=== PATIENT | female | born 1945 | race Caucasian/White ===

== ENCOUNTER 2016-09-17 10:34 | Inpatient (IN) | payer OTHER ==
[~2016-09-17] VITALS: Ht 167.6 cm; Wt 97.5 kg
--- NOTE | ~2016-09-17 | HC ---
[facility] [address] [place] [address] CONSULTATION Name: CESAR JADE Room #: 436-P ADM IN M.R.#: [id number] Admission: 09/17/16 Attend Phys: Misael Kessler Discharge: Date of : 41 Report #: [id number] THIS REPORT FOR: //name// CC: Bay Kessler DATE OF SERVICE: 09/17/2016 REASON FOR CONSULTATION: Acute kidney injury. HISTORY OF PRESENT ILLNESS: This is a 71-year-old female who has had a rather complex month of August. On September 01, she underwent right total knee replacement at [facility]. She was in there for 12 days. That recuperation was complicated by a deep venous thrombosis on the right side. She was put on subcutaneous Lovenox and also oral warfarin. She was just discharged to home 4 days ago. She said towards the end of her hospitalization, she was having more and more difficulty with dyspnea. She recalls no diagnosis related to the dyspnea including no diagnosis of heart failure. She was not having any fever. She ____ for a couple of days and then last night became very dyspneic. She took some additional medications and sounds like some Ambien and possibly some Ativan. She was ending up being sent by ambulance to the [facility]. She was seen there very early this morning. Chest x-ray there was reported as showing early pulmonary edema. She was put on BiPAP and given some IV furosemide. Per her family request, she ended up being transferred here at [facility] where she was admitted. At [place], her creatinine level was 1.8. Upon arrival here, her creatinine level was 1.5. She was put on BiPAP throughout the day here. Just recently, she was switched over to oxygen per nasal cannula and she states she is actually starting to breathe a little bit better and is much less anxious than she had been. She has a Mcnamara catheter in place with a moderate amount of watery looking urine. We are asked to see her for the elevated creatinine. Unfortunately, I do not have any baseline creatinine levels. The patient states that she has seen Dr. Bay Cho for years as her primary care physician. She does not recall that he has ever told her about any kidney related problems. She is unaware of proteinuria, hematuria. ____ if any urinary tract infections. No history of nephrolithiasis. She was on the recent Celebrex as the discharge medication post her knee surgery. She denies other nonsteroidals at home including no ibuprofen or naproxen, although previously she took naproxen on a fairly regular basis. She states that that was preoperative, cannot find evidence of nephrotoxic exposures nor any contrast exposures. PAST MEDICAL HISTORY: Type 2 diabetes, dating back at least 20 years. Again, she is unaware of proteinuria related to that. She does not recall that she has ever been diagnosed with any diabetic nephropathy. 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 She has some hypertension, but she states that that was just diagnosed after her bradycardia was treated with a pacemaker. At that time, she was put on some losartan 25 mg daily and also some metoprolol 100 mg daily. She had the deep venous thrombosis after her right total knee replacement and has been on Lovenox at home as well as some warfarin by mouth. She states she has had problems in the past with some anxiety issues. MEDICATIONS: On admission include the losartan 25 mg daily, metoprolol 100 mg daily, furosemide 20 mg daily, potassium 10 mEq daily, Actos 45 mg daily, metformin 750 mg daily, bupropion 150 mg daily, simvastatin 40 mg daily, Prevacid 30 mg daily, potassium 10 mEq daily, Carafate 1 g t.i.d., alprazolam 0.5 mg p.r.n. q. 6 hours, warfarin 5 mg daily, Lovenox 100 mg twice daily, pantoprazole 40 mg b.i.d., iron 325 mg t.i.d., Celebrex 200 mg daily and Levemir. I would note that when I asked her specifically about taking the Celebrex, she was unaware of this medication. ALLERGIES: No known medical allergies. FAMILY HISTORY: Negative for renal disease. SOCIAL HISTORY: The patient is , lives in [place]. She is retired. REVIEW OF SYSTEMS: Has felt poorly ever since she was discharged from [facility] 4 days ago. She says she has had trouble with dyspnea, orthopnea and PND. The orthopnea has been severe and she has not been able to recline much at all. She says she is breathing better at this time than she has been at home. She has had some lower extremity edema. She denies nausea or vomiting at this time. She denies chest pain. She says she has some bruising after she started the home Lovenox and that is mainly on her abdominal wall. She reports no visual or hearing change. PHYSICAL EXAMINATION: GENERAL: Pleasant, but anxious 71-year-old female, awake and responsive at this time. She is breathing comfortably currently on oxygen per nasal cannula. VITAL SIGNS: Blood pressure 140/69, heart rate 105, temperature 99.1, oxygen saturation 100%. HEENT: Shows pupils are equal and reactive. Sclerae nonicteric. Oral mucosa is moist. NECK: Veins are not distended. No adenopathy is noted. Neck is supple. CHEST: Shows somewhat decreased breath sounds bilaterally in the bases. I hear no rales, rhonchi or wheezes. CARDIOVASCULAR: Heart has what it currently appears to be a more irregular tachycardia. [facility] [address] [place] [address] CONSULTATION Name: CESAR JADE Room #: 436-P ADM IN M.R.#: [id number] Admission: 09/17/16 Attend Phys: Misael Kessler Discharge: Date of : 41 Report #: [id number] ABDOMEN: Somewhat obese, has active bowel sounds, soft, nontender at this time. Unable to palpate organomegaly or masses. She is very obese. EXTREMITIES: She has no upper extremity edema. Both lower extremities are in compression stockings, but still has 1+ edema bilaterally of the legs and the ankles, difficult to palpate pedal pulses through the compression stockings. Mcnamara catheter has a moderate amount of watery looking urine without much color, certainly no hematuria. LABORATORY DATA: I reviewed lab from [facility] and it is remarkable for a creatinine level of 1.8 and that was at 3:15 this morning, potassium was 5.5 at that time with bicarbonate of 17. By the time she got here to [place], labs were as follows: Sodium 142, potassium 4.5, chloride 105, bicarbonate 26, BUN 29, creatinine 1.5, glucose 298, calcium 8.9, total protein 6.1, albumin 2.7, normal liver function tests. Hemoglobin 7.9, hematocrit 24.4, white count 14.0, platelets 359,000. Blood gas; pH 7.46, pCO2 of 32, pO2 of 127.9. Lactate was 1.73. I reviewed her chest x-ray, which shows bilateral pulmonary edema, although mild to moderate in extent. ASSESSMENT: 1. Acute kidney injury. Creatinine level is 1.8 earlier this morning, 1.5 this afternoon here. I do not have a baseline and she is unaware of any prior underlying chronic kidney disease. I think this is most likely due to a combination of factors including some medications with both the losartan and the Celebrex as being potential contributing agents, it sounds like both of those are fairly new medications for her. Then, she was at home, says she was not taking much in, but also had apparent hemodynamic changes over worsening heart failure/pulmonary edema. I am sure all of these things contributed. At this point, she has been undergoing some diuresis and she is breathing better, creatinine level appears to be improving. Urine studies have been ordered, but they are not yet back. We will await and see what those show as well as repeat labs in the morning. I think this may all be a transient problem from a kidney standpoint. Again, the patient knows of no underlying chronic kidney problems. She has given me verbal permission to access her labs at [facility] when I am over there tomorrow and will see what her baseline creatinine levels are. 2. Pulmonary edema. She is diuresed some and is breathing more easily. Oxygenation is better. 3. Recent deep venous thrombosis, on anticoagulation. 4. A 16 days post right total knee replacement, again complicated by some deep venous thrombosis. 5. Longstanding type 2 diabetes mellitus. Again, she is unaware of prior diabetic nephropathy. 6. Obesity. 7. Recent deep venous thrombosis, on anticoagulation. That should be continued at this time. [facility] [address] [place] [address] CONSULTATION Name: CESAR JADE Room #: 436-P ADM IN M.R.#: [id number] Admission: 09/17/16 Attend Phys: Misael Kessler Discharge: Date of : 41 Report #: [id number] I had a long conversation with the patient. We will see ____ in the morning. We will follow up on her urine studies. She appears to be diuresing, so I will keep her on the current dose of furosemide. I do not think it needs to be changed at this point. We will also try to access her labs at [facility]. <ELECTRONICALLY SIGNED> By: Christopher Waters MD 09/18/16 0634 [id number] [id number] Mauricio Guerra MD /nt
--- NOTE | ~2016-09-17 | CATHLAB ---
[facility] [address] [place] [address] [place] [address] INVASIVE PROCEDURE REPORT Name: CESAR JADE Room #: 245-P [facility] IN M.R.#: [id number] Admission: 09/17/16 Attend Phys: Misael Montes Discharge: 09/22/16 Date of : 41 Date of Service: 09/22/16 1522 Report #: [id number] THIS REPORT FOR: //name// CC: Bay Kessler DATE OF SERVICE: 09/22/2016 IMPRESSION: 1. Coronary artery disease manifested by what appeared to be a recent occlusion of the proximal left anterior descending artery. 2. Attempts at angioplasty and stenting of the LAD were unsuccessful. 3. Despite resuscitative measures, the patient on the medical laboratory technicians table. PROCEDURES: Coronary angiography, attempted angioplasty and stenting of the left anterior descending artery, placement of venous catheter in the right and left femoral vein, oral intubation and cardiopulmonary resuscitation. DESCRIPTION OF PROCEDURE: The patient was brought to the cardiac catheterization lab with evidence of a non-ST segment elevation myocardial infarction. The patient was having no significant chest pain on arrival. The patient had developed low blood pressure and was on dopamine on arrival. The patient had been given a bolus of heparin. The patient was AV sequentially paced. The right groin area was cleaned with ChloraPrep and sterilely draped in the usual fashion. The area was anesthetized with 1% lidocaine and a percutaneous needle was used in an effort to enter the right femoral artery. However, venous blood was obtained. A 6-Paraguayan sheath was placed into the right femoral vein. The needle was redirected laterally, but arterial blood could not be obtained. Despite several efforts, I could not locate the right femoral artery. Therefore, the left groin area was cleaned with ChloraPrep and sterilely draped in the usual fashion. The area was anesthetized with 1% lidocaine. It was difficult to palpate a pulse ____ patient's blood pressure of only 100 systolic and she was a large lady. The percutaneous needle was again used in an effort to enter the left femoral artery. However, venous blood was obtained. A 6-Paraguayan sheath was placed into the left femoral vein. The needle was then redirected laterally, and this time, arterial blood was obtained. I was able to place a 7 Paraguayan sheath in the left femoral artery. The initial ACT was under 200 seconds and arterial blood gas was sent for dialysis. A 6-Paraguayan diagnostic left coronary catheter was then inserted through the arterial sheath over a guidewire to the ostium of the left main artery. A single view was taken of the left coronary artery that showed the LAD to be proximally occluded. It was, therefore, decided to proceed with emergent angioplasty. The patient was given Integrilin with initial bolus of 180 mcg per kilogram and that was repeated in 10 minutes. The patient was started on intravenous Integrilin at 1 mcg per kilogram per minute because of renal insufficiency. The patient was [address] [address] INVASIVE PROCEDURE REPORT Name: YASMANYCESAR Room #: 245-P DIS IN M.R.#: [id number] Admission: 09/17/16 Attend Phys: Misael Montes Discharge: 09/22/16 Date of : 41 Date of Service: 09/22/16 1522 Report #: [id number] given an additional 2000 units of heparin intravenously when the ACT was under 200 seconds. A 6-Paraguayan Cordis XB 3.5 LAD guiding catheter was then inserted through the arterial sheath over a guidewire to the ostium of the left main artery. The ABG showed adequate oxygenation and pH. A 0.014 BMW wire was then inserted through the guiding catheter across the total occlusion and out through the distal left anterior descending artery. A 2.5 mm diameter 12 mm long angioplasty balloon was then inserted through the guiding catheter over the guidewire to within the area of occlusion. The area was then dilated by inflating the balloon up to 8 atmospheres for 20 seconds. Arteriogram showed reperfusion of the LAD with a significant stenosis. Therefore, the balloon was removed and exchanged for an 18 mm long, 2.5 mm diameter drug-eluting Medtronic stent, which was inserted through the guiding catheter over a guidewire. Because of tortuosity of the proximal LAD, I could not advance the stent to the area of stenosis. An arteriogram again showed the LAD to be occluded. Therefore, the stent balloon was removed and exchanged for the 2.5 x 12 mm long angioplasty balloon which was reinserted through the guiding catheter over guidewire to within the area of stenosis. Multiple balloon inflations were then performed in an effort to reestablish perfusion in the LAD. At this time, the patient's blood pressure continued to drop despite the dopamine. The patient became less responsive. A code blue was called and the patient was intubated by the Emergency Room physician. Again, an ABG showed adequate oxygenation and pH. At this point, it was decided to attempt stenting of the LAD and place an intraaortic balloon pump. Therefore, the angioplasty balloon was removed and because of tortuosity of the proximal LAD, I planned to place a 12 mm long, 2.5 mm bare metal stent. However at this point, the patient's blood pressure decreased despite Levophed. CPR was started. The patient then developed ventricular fibrillation. She was cardioverted on 2 occasions and given IV aminophylline. The patient was given a bolus of vasopressin 30 units intravenously. Despite these efforts, the patient remained AV paced with no blood pressure. This was despite prolonged CPR. At this point, it was decided to pronounce the patient. My impression is that the patient had suffered an acute occlusion of the proximal LAD that was not recognized immediately because she had a paced rhythm. Unfortunately, she developed cardiogenic shock and by the time I reperfused the LAD, her cardiogenic shock was irreversible and she developed significant hypotension despite vasopressors and became unresponsive and had a respiratory arrest. Unfortunately, blood pressure was never able to be stabilized and I was unable to reperfuse the LAD and was unable to place the balloon pump for hemodynamic support. IMPRESSION: 1. Coronary artery disease, the left anterior descending artery was initially completely occluded just after the takeoff from the left main artery. The circumflex artery appeared to be at least a codominant vessel with a large first marginal branch, followed by small second and third marginal branch. Distally, there was a small posterolateral branch noted. 2. Following balloon angioplasty, arteriogram of the left anterior descending [facility] [address] [place] [address] INVASIVE PROCEDURE REPORT Name: YASMANYCESAR Room #: 245-P [facility] IN M.R.#: [id number] Admission: 09/17/16 Attend Phys: Misael Montes Discharge: 09/22/16 Date of : 41 Date of Service: 09/22/16 1522 Report #: [id number] artery showed reperfusion with a 99% subtotal proximal stenosis of the left anterior descending. However, subsequent arteriogram showed the left anterior descending re-occluded with no significant flow into the left anterior descending. <ELECTRONICALLY SIGNED> By: Bay Anders MD, FAC 09/23/16 1000 1522 0057 Bay Anders MD, FAC /nt
--- NOTE | ~2016-09-17 | EKG ---
[place] [address] [facility] [place] [address] ELECTROCARDIOGRAM REPORT Name: CESAR JADE Room #: 245-P [facility] IN M.R.#: [id number] Admission: 09/17/16 Attend Phys: Misael Kessler Discharge: 09/22/16 Date of : 41 Report #: [id number] THIS REPORT FOR: //name// [facility] Test Date: 2016-09-21 Test Time: 09:36:24 Pat Name: CESAR JADE Department: Room: [facility] Gender: F Lay Out Maker: BRYANNA : 1945 Requested By: Kendal Moreira Order Number: [id number] MD: Julián Cuellar Measurements Intervals [place] Rate: 92 P: 113 MI: 220 QRS: -60 QRSD: 167 T: -21 QT: 409 QTc: 507 Interpretive Statements Ventricular-paced complexes No further analysis attempted due to paced rhythm No previous ECG available for comparison Electronically Signed On 09-23-2016 9:00:48 [employer] by Julián Cuellar [email or web address] <ELECTRONICALLY SIGNED> By: Julián Cuellar MD 09/23/16 0900 5 5 Julián Cuellar MD /TYRELL
--- NOTE | ~2016-09-17 | HC ---
[facility] [address] [place] [address] CONSULTATION Name: CESAR JADE Room #: 436- ADM IN M.R.#: [id number] Admission: 09/17/16 Attend Phys: Misael Kessler Discharge: Date of : 41 Report #: [id number] THIS REPORT FOR: //name// CC: Bay Kessler DATE OF SERVICE: 09/18/2016 PRIMARY CARE PHYSICIAN: Bay Cho MD. REQUESTING PHYSICIAN: Misael Kessler MD. REASON FOR CONSULTATION: Congestive heart failure. HISTORY OF PRESENT ILLNESS: The patient is a 71-year-old patient of mine who has a history of sick sinus syndrome and hypertension. She underwent elective knee surgery at [facility] on her right knee on the first week of August. This apparently was complicated by DVT and she was discharged on bridging therapy of Lovenox and warfarin. Over the next several days, she has become progressively more short of breath and has been retaining fluid. This got to the point where she was severely hypoxic and was taken by ambulance apparently to [facility]. At that point in time, the patient also had taken some Ambien and was significantly dyspneic, possibly relating and was hypercapnic with an acidosis and it was felt that congestive heart failure and this drug were responsible for her hypercapnic respiratory failure. She was briefly on BiPAP this morning, she is on O2 per nasal cannula. We have been diuresing her aggressively and she has had an improvement in her respiratory function. However, an echocardiogram performed at this institution demonstrated a significant decline in left ventricular function, ejection fraction is now in the 35% range from the normal of March. She is ventricular paced on the telemetry without any arrhythmia. Clinically, she denied chest pain or pressure, nausea or vomiting, neck or jaw discomfort. Her troponin I in transfer was only compatible with CHF with troponin of 0.11. She denies syncope or presyncope. She had been having some black tarry stools and her hemoglobin this morning is 7.5. She has a history of hiatal hernia. She denies flora hematemesis or melena. PAST MEDICAL HISTORY: She has a history of complete AV block status post urgent [facility] [address] [place] [address] CONSULTATION Name: CESAR JADE Room #: 436-P ADM IN M.R.#: [id number] Admission: 09/17/16 Attend Phys: Misael Kessler Discharge: Date of : 41 Report #: [id number] placement of a temporary pacemaker and a Biotronik dual chamber device in 2015. She has hypertension, malignant; hyperlipidemia; diabetes mellitus type 2. She had a stress test in 03/2016, which was negative for ischemia. Ejection fraction was 63%. PAST SURGICAL HISTORY: She has had 4 prior foot surgeries, shoulder surgery and now the knee replacement and past medical history as noted above, status post right-sided knee replacement with DVT postoperatively. HOME MEDICATIONS: Include Actos 45 mg daily, metformin 850 mg once daily, bupropion 150 mg daily, glucosamine, MegaRed, Zocor 40 mg daily, Lasix 20 mg once daily with 10 mEq potassium daily, losartan 25 mg daily and Toprol-XL 100 mg daily. REVIEW OF SYSTEMS: GASTROINTESTINAL: Positive hiatal hernia, abdominal discomfort, black colored stools, no melena, hematochezia, hematemesis. GENERAL: No fevers or chills. CARDIOVASCULAR: No chest pain. Positive dyspnea, positive orthopnea, positive dyspnea on exertion. MUSCULOSKELETAL: Positive edema. SKIN: No rashes. NEUROLOGIC: Denies slurred speech, extremity numbness or weakness. RENAL: No previous history of kidney failure. PHYSICAL EXAMINATION: VITAL SIGNS: Temperature is 36.8, blood pressure 107/53, telemetry ventricular paced rhythm 110 beats per minute. GENERAL: This is an obese, elderly female. She is resting comfortably. She is alert, oriented, no apparent distress. EYES: EOMs intact. FACE: There is no facial asymmetry. NECK: Supple. There is no jugular venous distention. CARDIOVASCULAR: Heart tones are regular. There is no murmur. LUNGS: There are some coarse breath sounds in the bases with no wheezing. ABDOMEN: Obese, nontender. EXTREMITIES: There is 1-2+ pretibial edema bilaterally. SKIN: Warm and dry. PSYCHIATRIC: The patient has appropriate mood and affect. Electrocardiogram shows a ventricular paced rhythm. X-ray shows cardiomegaly and bilateral infiltrate, small pleural effusions. Hemoglobin is 7.5, white blood cell count is 11.0, platelet count is 345,000. INR was 1.8, it was 2.2 on transfer from [facility]. Her ABG 7.454, pCO2 of 37, pCO2 of 82 this morning on O2 per nasal cannula [address] [address] CONSULTATION Name: YASMANYCESAR Room #: 436-[facility] IN M.R.#: [id number] Admission: 09/17/16 Attend Phys: Misael Kessler Discharge: Date of : 41 Report #: [id number] Renal panel; sodium is 144, potassium is 3.5, chloride is 107, CO2 is 26, BUN is 27 and creatinine is 1.6. IMPRESSION: 1. Acute systolic congestive heart failure. There has been a considerable decline in left ventricular function. She related no symptoms compatible with an angina presentation and her troponins were unremarkable to the level of left ventricular dysfunction she has. There is a septal wall motion abnormality, but she has a paced rhythm and is probably related to discordance from this. Previous stress testing was negative. She does present anemic and could possibly have had high output heart failure. I would like to continue with aggressive diuresis and place her on carvedilol from [place]. We have held her GERA in the time being for her acute kidney injury, but at some point in time, I would like to place her on Entresto prior to discharge. 2. Pneumonia. She is on vancomycin. 3. Deep venous thrombosis. She will continue with anticoagulation. There were elevated pulmonary artery pressures concerning for possible pulmonary hypertension secondary to pulmonary emboli. Apparently, a CT scan was performed at [facility], details are not available. She did have a venous Doppler here, which was negative for deep venous thrombosis this hospitalization. 4. Hypertension, malignant. Etiology of her heart failure could be related to hypertensive cardiomyopathy as well. We will treat this aggressively once her renal function improves. If she does not respond to her usual therapy, she may require further testing including MRI as an outpatient to rule out infiltrative process as she did initially present with a significant conduction abnormalities. 5. Acute kidney injury as above. <ELECTRONICALLY SIGNED> By: Armaan Tyson MD, [facility] 09/22/16 0936 0838 1145 Armaan Tyson MD, FACC /nt
--- NOTE | ~2016-09-17 | EKG ---
[place] [address] [facility] [place] [address] ELECTROCARDIOGRAM REPORT Name: CESAR JADE Room #: 245- DIS IN M.R.#: [id number] Admission: 09/17/16 Attend Phys: Misael Kessler Discharge: 09/22/16 Date of : 41 Report #: [id number] THIS REPORT FOR: //name// [facility] Test Date: 2016-09-22 Test Time: 10:36:24 Pat Name: CESAR JADE Department: Room: [facility] Gender: F Engineer Assistant: zayda : 1945 Requested By: Misael Kessler Order Number: [id number] MD: Hair Solis Measurements Intervals [place] Rate: 87 P: -58 LA: 276 QRS: -69 QRSD: 152 T: 115 QT: 427 QTc: 514 Interpretive Statements Ventricular-paced rhythm No further analysis attempted due to paced rhythm Baseline wander in lead(s) III,aVL,aVF,V2 No previous ECG available for comparison Electronically Signed On 09-23-2016 8:51:36 DENTAL DIRECTOR by Hair Solis [email or web address] <ELECTRONICALLY SIGNED> By: Hair Solis MD, [facility] 09/23/16 0851 1036 1036 Hair Solis MD, [facility] /EPI
--- NOTE | ~2016-09-17 | HC ---
[facility] [address] [place] [address] CONSULTATION Name: CESAR JADE Room #: 436- ADM IN M.R.#: [id number] Admission: 09/17/16 Attend Phys: Misael Kessler Discharge: Date of : 41 Report #: [id number] THIS REPORT FOR: //name// CC: Bay Kessler REFERRAL PHYSICIAN:. Misael Kessler M.D. REASON FOR REFERRAL: Hypoxia. HISTORY OF PRESENT ILLNESS: The patient is a 71-year-old white female, who was transferred from [facility] for acute dyspnea. She was initially seen at [facility]. She was subsequently transferred to [facility] for further evaluation and management. A pulmonary consultation was requested. When she was seen yesterday at [facility], she was found to be hypercapnic with mix acidosis. She was felt to have possible heart failure. The patient had recently underwent right knee surgery 2 weeks ago. She was placed on anticoagulation for an apparent involving DVT. According to history, the patient was unable to sleep for couple of nights and she took 2 tablets of Ambien. The patient is more awake now. She has been placed on BiPAP since arrival. Her saturation is adequate. The patient states that she does have trouble with anxiety, but the last episode occurred many years ago. She stated that yesterday when she was awoke, when she was quite claustrophobic, dyspneic and felt anxious. Other pertinent findings include transient bradycardia. At present, she feels better. She is more arousable. She denies any chest pain. She feels less dyspneic. PAST MEDICAL HISTORY: As mentioned above including diabetes mellitus type 2, hyperlipidemia, gastroesophageal reflux disease, hypertension, COPD. PAST SURGICAL HISTORY: As mentioned above. ALLERGIES: None noted. FAMILY HISTORY: Noncontributory. [facility] [address] [place] [address] CONSULTATION Name: CESAR JADE Room #: 436-P [facility] IN ..#: [id number] Admission: 09/17/16 Attend Phys: Misael Kessler Discharge: Date of : 41 Report #: [id number] SOCIAL HISTORY: She is . She has smoked, but quit many years ago. She denies any alcohol use. REVIEW OF SYSTEMS: As mentioned above, otherwise 10-point system review negative. PHYSICAL EXAMINATION: GENERAL: She is more arousable now in no apparent distress. VITAL SIGNS: Temperature is 97.8 degrees Fahrenheit, pulse is 106, respiratory rate is 25, blood pressure 146/79 mmHg, saturation is 100%. HEENT: Normocephalic, atraumatic. NECK: Supple, without any lymphadenopathy or thyromegaly. CHEST: Breath sounds are fair, but clear bilaterally without any rales or wheezes. CARDIOVASCULAR: Normal S1, S2. Pulses are 2+/4+ bilaterally. BREASTS: Exam deferred. ABDOMEN: Soft, nontender, no organomegaly or masses felt. EXTREMITIES: No cyanosis or clubbing but remarkable for 1 or 2+ bilateral pretibial edema, slightly greater in the right than the left. LABORATORY DATA: Arterial blood gas revealed pH 7.46, pCO2 32, pO2 127. Albumin is 2.7, hemoglobin 9.7. WBC is 14,400, INR is 2.2. Leg Doppler ultrasound was negative for DVT. IMPRESSION: 1. Acute hypoxic respiratory failure and apparent hypercapnia in this patient. This may be related to hypnotics having taken 2 Ambien overnight. Pulmonary embolus is felt to be less likely as patient is anticoagulant adequately with an INR of 2.2. I do not see report of chest x-ray, but pneumonia should be considered. 2. Apparent pulmonary edema. We will review chest x-ray when available. 3. Elevated BNP may be related to presumed possible heart failure, and this may be related to recent surgery, resulting in inflammatory response. 4. Leukocytosis, differential was not performed. May be likely related to reactive leukocytosis, but cannot rule out infectious process. 5. Remote history of tobacco use. She has apparent history of chronic obstructive pulmonary disease, we will continue bronchodilator. 6. Renal insufficiency, with an apparent creatinine 1.5, suspect acute kidney injury, cause not entirely clear, but possible acute tubular necrosis due to perhaps transient hypotension. 7. Diabetes mellitus type 2. 8. Hypertension. 9. Obesity without history of sleep apnea. RECOMMENDATION: Continue supplemental oxygen, wean for saturation 90%. For [address] [address] CONSULTATION Name: CESAR JADE Room #: 436-P ADM IN M.R.#: [id number] Admission: 09/17/16 Attend Phys: Misael Kessler Discharge: Date of : 41 Report #: [id number] now, we will continue anticoagulation. We will obtain records from [facility] for review. We will also obtain a chest x-ray today. If chest x-ray is normal and patient remained hypoxic, may need to consider VQ scan. CT angiogram will be deferred given acute kidney injury. She has an anxiety disorder and this may be causing some of her problems. Benzodiazepines may be helpful. If insomnia is a problem, she should be evaluated for possible sleep-related breathing disorder. GI prophylaxis will be recommended. We will request medical records as mentioned above for review regarding her recent knee surgery along with apparent diagnosis of presumed ? DVT. Thank you for the consultation. <ELECTRONICALLY SIGNED> By: Praveen Atkins MD 09/19/16 1628 1511 2314 Praveen Atkins MD /kristy
--- NOTE | ~2016-09-17 | 2DMMODE ---
[facility] [place] [address] 2 D/M-MODE ECHOCARDIOGRAM Name: CESAR JADE Room #: 436-P [facility] IN M.R.#: [id number] Admission: 09/17/16 Attend Phys: Misael Montes Discharge: Date of : 41 Date of Service: 09/17/16 1532 Report #: [id number] THIS REPORT FOR: //name// Transthoracic Echocardiography Ordering physician: Misael Kessler Referring physician: Misael Kessler Professor Of French: LISA Mitchell Indications/History: PPM, DM, Dyspnea. BP: 146 / HR: 101bpm Height: 66in Weight: 213.6lb 79 Study data: M-mode, complete 2D, complete spectral Doppler, and color Doppler. Location: Bedside. Routine. Image quality was adequate. The study was technically limited due to poor acoustic window availability, restricted patient mobility, and body habitus. Intravenous contrast (Definity) was administered. 2D measurements Normal Normal LVID ED 50.9mm 36-57 IVS ED 9.8mm 6-11 LVID ES 40.9mm 23-40 LVPW ED 9.3mm 6-11 LA volume index 16-28 AoRoot diam ED 21.8mm 21-37 LVOT diameter 18mm 18-23 Findings: Left ventricle: The cavity size was normal. Wall thickness was normal. Systolic function was moderately to severely reduced. The estimated ejection fraction was in the range of 30% to 35%. Diffuse hypokinesis. Right ventricle: The cavity size was normal. Pacer wire or catheter noted in right ventricle. Systolic function was normal. Ventricular septum: Paradoxical motion. Right atrium: The atrium was normal in size. Pacer wire or catheter noted in right atrium. Left atrium: The atrium was normal in size. [facility] [address] [place] [address] 2 D/M-MODE ECHOCARDIOGRAM Name: CESAR JADE Room #: 436-P [facility] IN M.R.#: [id number] Admission: 09/17/16 Attend Phys: Misael Montes Discharge: Date of : 41 Date of Service: 09/17/161531 Report #: [id number] Aortic valve: Structurally normal valve. Doppler: There was no stenosis. No regurgitation. Peak velocity: 129.5cm/s (S). Mitral valve: Moderately calcified annulus. Doppler: There was no evidence for stenosis. Mild regurgitation. Tricuspid valve: Structurally normal valve. Doppler: There was no evidence for stenosis. Mild regurgitation. Regurgitant peak velocity: 257.9cm/s. Peak RV-RA gradient: 27mm Hg (S). Pulmonic valve: Structurally normal valve. Doppler: There was no evidence for stenosis. No regurgitation. Pericardium: There was no pericardial effusion. Aorta: Aortic root: The aortic root was normal in size. Pulmonary artery: Systolic pressure was estimated to be 42mm Hg. Diastolic function: The study is not technically sufficient to allow evaluation of LV diastolic function. Systemic veins: Inferior vena cava: The vessel was dilated; respirophasic changes in dimension were absent. Conclusions 1. Left ventricle: Systolic function was moderately to severely reduced. The estimated ejection fraction was in the range of 30% to 35%. 2. Mitral valve: Moderately calcified annulus. Mild regurgitation. 3. Pericardium, extracardiac: There was no pericardial effusion. <ELECTRONICALLY SIGNED> By: Armaan Tyson MD, [facility] 09/17/16 1638 1532 1638 Armaan Tyson MD, FACC /cristiane
--- NOTE | ~2016-09-17 | HC ---
[facility] [address] [place] [address] CONSULTATION Name: CESAR JADE Room #: [facility]-P [facility] IN M.R.#: [id number] Admission: 09/17/16 Attend Phys: Misael Kessler Discharge: 09/22/16 Date of : 41 Report #: [id number] THIS REPORT FOR: //name// CC: Bay Kessler DATE OF SERVICE: 09/19/2016 HISTORY OF PRESENT ILLNESS: The patient is a 71-year-old white female who underwent a right total knee arthroplasty on 09/01/2016 at [facility]. Her course was complicated by a probable right lower extremity DVT without PE 2-3 days postop. She was placed on Coumadin and Lovenox and then a few days later developed nausea, vomiting, hematemesis with coffee-ground emesis and melena. She underwent an EGD by either Dr. Hernandez or Dr. Duffy, which revealed "multiple undigested pills found in her known hiatal hernia." No obvious signs of any ulcers or bleeding were noted. She was placed on PPI b.i.d. Carafate and oral iron. No further additional nausea, vomiting or hematemesis. She was able to be discharged home from [facility] on 09/13/2016. She was walking only short distances around her home. She had the onset of gradual worsening shortness of breath and she notes that she has a history of anxiety as well. She was transferred to [facility]. From there, they have transferred her to [facility]. She was diagnosed with acute respiratory failure, hypercapnic pulmonary edema. She was noted to have symptoms consistent with paroxysmal nocturnal dyspnea. She had an elevated BNP. She was placed on BiPAP in the Emergency Department. She is now being treated for acute respiratory failure, hypercapnic with obstructive sleep apnea, pulmonary edema, cardiogenic, acute systolic heart failure, mixed acidosis which has improved. She has coagulopathy secondary to Coumadin noted to be reversed. She does have pulmonary medicine involved as well as Cardiology. She also was noted to have some acute renal insufficiency. We are seeing her in rehabilitation medicine consultation. She is significantly debilitated and has medical complexity. 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 PAST SURGICAL HISTORY: As noted above. She had the recent total knee replacement on the right. HABITS: Tobacco: Quit greater than 1 year. Alcohol use: None. MEDICATIONS: Please see the full medication listing. SOCIAL HISTORY: Lives in a house with her , 3 steps in. She ambulated short household distances premorbidly. She utilized a front-wheeled walker [address] [address] CONSULTATION Name: CESAR JADE Room #: 245-P DIS IN M.R.#: [id number] Admission: 09/17/16 Attend Phys: Misael Kessler Discharge: 09/22/16 Date of : 41 Report #: [id number] since the surgery, but prior to the knee replacement was basically just limping and did not utilize gait aids. She was not on O2 premorbidly. ALLERGIES: No known drug allergies. REVIEW OF SYSTEMS: Did not offer any current complaints of chest pain, shortness of breath or abdominal discomfort. She notes she does fine at rest, but has concerns with increased activity. Her orthopedist is apparently Dr. Cao. She has only mild knee discomfort. She notes that she has battled anxiety in the past and apparently took Valium a number of years ago but had not tried to utilize it more recently. PHYSICAL EXAMINATION: GENERAL: Pleasant 71-year-old obese, white female in no obvious distress. VITAL SIGNS: Last recorded temperature 97.8, pulse 98, respirations 20, blood pressure 160/76. GENERAL APPEARANCE: The patient is alert. She is pleasant, oriented. HEENT: Benign. She has been on BiPAP, although currently is on 1 liter nasal cannula. Facies appeared to be symmetric. She is a good historian. EXTREMITIES: She has functional range of motion of both upper extremities with strength grade 4-/5. DTRs are trace to 1. In her lower extremities, the right total knee incision appears to be healing well. There is no evidence of erythema. She has reasonable range of motion to about 90 degrees flexion and good extension. No focal calf swelling. Strength appears to be a 4-/5 left lower extremity, no focal calf swelling. Strength is grade 4-/5. DTRs are trace to 1. She is standby assistance for sit to stand and gait is contact guard 20 feet front-wheeled walker. ASSESSMENT: A 71-year-old white female with the following problem list: 1. Medical complexity with generalized debilitation. 2. Acute respiratory failure. 3. Hypercapnic pulmonary edema. 4. A recent right total knee arthroplasty on 09/01/2016. 5. Postoperative right lower extremity deep venous thrombosis. 6. Gastrointestinal bleed thought to be a probable upper gastrointestinal bleed, had been on nonsteroidals Coumadin and Lovenox. 7. Bradycardia with prior pacemaker. 8. Acute renal insufficiency. 9. Diabetes mellitus. 10. Hypertension. 11. Gastroesophageal reflux disease. 12. Anxiety with insomnia. PLAN: The patient has medical complexity with generalized debilitation. She has the multiple medical comorbidities and would meet medical necessity criteria. From a preadmission screening perspective: [facility] [address] [place] [address] CONSULTATION Name: CESAR JADE Room #: 245-P DIS IN M.R.#: [id number] Admission: 09/17/16 Attend Phys: Misael Kessler Discharge: 09/22/16 Date of : 41 Report #: [id number] 1. Prior level of function is delineated above. 2. Expected level of improvement would be for the patient to improve with basic functional mobility and ADLs, so that she could be modified independent with transfers and improve her endurance with gait, become independent with ADLs, ideally taper off the oxygen. 3. Evaluate the patient's risk for clinical complications. She does have the multiple medical comorbidities as noted above. 4. Condition that caused the need for rehabilitation would be the medical complexity with generalized debilitation. 5. Treatments needed would include PT and OT 1-1/2 hours per day each 5 days a week throughout the duration of the acute inpatient rehabilitation stay. 6. Anticipated discharge destination would be back to the home setting. 7. Would anticipate home healthcare therapies once she is ready to return back home. 8. The patient would meet diagnostic criteria for an acute in-hospital inpatient rehabilitation stay. She would meet medical necessity criteria and the multiple retail wireless sales consultant physicians with Internal Medicine, GI, Pulmonary, Cardiology all could follow along with her while she is on the acute inpatient rehab [place]. She meets tolerance criteria for an acute in-hospital inpatient rehabilitation stay and does have appropriate discharge goals back to the home setting. <ELECTRONICALLY SIGNED> By: Bay Sanchez MD 09/23/16 0958 1109 1812 Bay Sanchez MD /nt
[2016-09-17 10:30] VITALS: BP 146/79
[2016-09-17] MEDS ORDERED: PIOGLITAZONE15 MG PO (10:48)
[2016-09-17] MEDS ORDERED: SIMVASTATIN40 MG PO (10:49)
[2016-09-17] MEDS ORDERED: GLUCOPHAGE XR750 MG PO (10:49)
[2016-09-17] MEDS ORDERED: WELLBUTRIN SR150 MG PO (10:49)
[2016-09-17] MEDS ORDERED: CENTRUM SILVER1 EAC4 PO (10:50)
[2016-09-17] MEDS ORDERED: PREVACID30 MG PO (10:50)
[2016-09-17] MEDS ORDERED: COZAAR 25 MG TA25 M1 PO (10:51)
[2016-09-17] MEDS ORDERED: KLOR-CON 1010 MEQ PO (10:51)
[2016-09-17] MEDS ORDERED: FUROSEMIDE 20 M20 MG PO (10:51)
[2016-09-17] MEDS ORDERED: CARAFATE 1 GM TA1 G1 PO (10:52)
[2016-09-17] MEDS ORDERED: XANAX 0.5 MG0.5 MG PO (10:52)
[2016-09-17] MEDS ORDERED: COUMADIN 5 MG TA5 M1 PO (10:53)
[2016-09-17] MEDS ORDERED: ENOXAPARIN100 MG/11 SUBQ (10:53)
[2016-09-17] MEDS ORDERED: PROTONIX40 M1 PO (10:54)
[2016-09-17] MEDS ORDERED: CELEBREX 200 M200 M1 PO (10:54)
[2016-09-17] MEDS ORDERED: IRON325 PO (10:54)
[2016-09-17] MEDS ORDERED: METOPROLOL SUC100 MG PO (10:56)
[2016-09-17] MEDS ORDERED: LEVEMIR SUBQ (10:59)
[2016-09-17 13:10] LABS: ABG SAMPLE TYPE ARTERIAL; BE(vivo) -1.2 mmol/L (-2 to +3); HCO3 22.2 mmol/L (22.0-26.0); LACTATE 1.73 mmol/L (0.5-2.0); O2(CT) 12.7 mL/dL (15.0-23.0); PO2 127.9 mmHg (80.0-100.0); sO2 98.7 % (92.0-98.0); tCO2 23.2 mmol/L (24.0-30.0)
[2016-09-17 13:11] LABS: ABG COMMENT 14/6; Pressure Support 14 cm H20; STICK SITE R.BRACHIAL; VDS BIPAP SPONT TIME cc
[2016-09-17 13:16] LABS: HEMATOCRIT 24.4 % (37.0-47.0); HEMOGLOBIN 7.9 gm/dL (12.0-15.0); MCH 29.3 pg (26.0-34.0); MCHC 32.3 % (28.0-37.0); MCV 90.9 fL (80.0-100.0); RBC 2.68 mil/uL (4.20-5.00); RDW 14.5 % (10.5-14.5)
[2016-09-17 13:32] LABS: CALCIUM 8.9 mg/dL (8.5-10.1); CREATININE 1.5 mg/dL (0.6-1.3); POTASSIUM 4.5 mmol/L (3.5-5.1)
[2016-09-17 13:37] LABS: ALBUMIN 2.7 g/dL (3.4-5.0); TOTAL BILIRUBIN 0.3 mg/dL (<0.1-1.0); TOTAL PROTEIN 6.1 g/dL (6.4-8.2)
[2016-09-17 16:19] VITALS: BP 140/69
[2016-09-17 18:16] LABS: URINE BILIRUBIN NEGATIVE (Negative); URINE BLOOD 1+ (Negative); URINE COLOR YELLOW; URINE GLUCOSE-RANDOM* NEGATIVE (Negative); URINE KETONES NEGATIVE (Negative); URINE NITRITE NEGATIVE (Negative); URINE PROTEIN (DIPSTICK) NEGATIVE (Negative); URINE UROBILINOGEN 0.2 E.U./dl (0.2-1.0)
[2016-09-17 18:25] LABS: BACTERIA 1-9 Few /HPF (None Seen); CASTS None Seen /LPF (None Seen); SQUAMOUS 4-10 Moderate /LPF (0-3); URINE RBC 0-2 Rare /HPF (0-2)
[2016-09-17 18:27] LABS: WBC CLUMPS Few (None Seen)
[2016-09-17 19:44] VITALS: BP 107/53
[2016-09-18 05:18] VITALS: BP 126/57
[2016-09-18 05:52] LABS: ABSOLUTE NEUTROPHILS 7.3 thou/uL (1.4-8.2); BASOPHILS 0.5 % (0.0-2.0); EOSINOPHILS 0.9 % (0.0-3.0); HEMATOCRIT 23.4 % (37.0-47.0); HEMOGLOBIN 7.5 gm/dL (12.0-15.0); LYMPHOCYTES 24.4 % (24.0-44.0); MCH 29.5 pg (26.0-34.0); MCHC 32.2 % (28.0-37.0); MCV 91.6 fL (80.0-100.0); MONOCYTES 7.8 % (1.0-8.0); PLATELET COUNT 345 thou/uL (150-400); POLYS 66.4 % (36.0-66.0); RBC 2.56 mil/uL (4.20-5.00); RDW 14.8 % (10.5-14.5)
[2016-09-18 05:57] LABS: MANUAL DIFF NO
[2016-09-18 05:59] LABS: INR 1.8
[2016-09-18 06:02] LABS: ALBUMIN 2.5 g/dL (3.4-5.0); CALCIUM 8.5 mg/dL (8.5-10.1); CREATININE 1.6 mg/dL (0.6-1.3); MAGNESIUM 1.7 mg/dL (1.8-2.4); TOTAL BILIRUBIN 0.3 mg/dL (<0.1-1.0); TOTAL PROTEIN 5.7 g/dL (6.4-8.2)
[2016-09-18 06:04] LABS: POTASSIUM 3.5 mmol/L (3.5-5.1)
[2016-09-18 07:30] LABS: ABG SAMPLE TYPE ARTERIAL; BE(vivo) 1.5 mmol/L (-2 to +3); HCO3 25.5 mmol/L (22.0-26.0); LACTATE 1.22 mmol/L (0.5-2.0); O2(CT) 10.2 mL/dL (15.0-23.0); O2Hb 94.5 % (92.0-98.0); PCO2 37.2 mmHg (35.0-45.0); PO2 82.5 mmHg (80.0-100.0); pH 7.454 (7.360-7.450); sO2 96.6 % (92.0-98.0); tCO2 26.7 mmol/L (24.0-30.0)
[2016-09-18 07:31] LABS: STICK SITE R.BRACHIAL
[2016-09-18 16:00] VITALS: BP 120/55
[2016-09-18 19:42] VITALS: BP 115/58
[2016-09-18 23:08] LABS: GLYCOHEMOGLOBIN (HGB A1C) 7.9 % (4.8-5.6)
[2016-09-19 04:47] VITALS: BP 142/62
[2016-09-19 05:35] LABS: ABSOLUTE NEUTROPHILS 7.6 thou/uL (1.4-8.2); BASOPHILS 0.7 % (0.0-2.0); EOSINOPHILS 2.2 % (0.0-3.0); HEMATOCRIT 24.6 % (37.0-47.0); HEMOGLOBIN 7.9 gm/dL (12.0-15.0); LYMPHOCYTES 18.1 % (24.0-44.0); MCH 29.9 pg (26.0-34.0); MCHC 32.3 % (28.0-37.0); MCV 92.6 fL (80.0-100.0); PLATELET COUNT 337 thou/uL (150-400); RBC 2.65 mil/uL (4.20-5.00); RDW 14.7 % (10.5-14.5); WBC 10.6 thou/uL (4.0-11.0)
[2016-09-19 05:36] LABS: MANUAL DIFF NO
[2016-09-19 05:47] LABS: ALBUMIN 2.6 g/dL (3.4-5.0); CALCIUM 8.5 mg/dL (8.5-10.1); CREATININE 1.8 mg/dL (0.6-1.3); MAGNESIUM 1.9 mg/dL (1.8-2.4); PHOSPHORUS 3.4 mg/dL (2.5-4.9); POTASSIUM 4.2 mmol/L (3.5-5.1); TOTAL BILIRUBIN 0.3 mg/dL (<0.1-1.0)
[2016-09-19 07:57] LABS: INR 1.3; PROTIME 12.9 Seconds (9.3-11.4)
[2016-09-19 08:32] VITALS: BP 160/76
[2016-09-19 12:16] VITALS: BP 131/56
[2016-09-19 16:18] VITALS: BP 142/61
[2016-09-19 20:02] VITALS: BP 124/52
[2016-09-20 05:12] VITALS: BP 137/59
[2016-09-20 06:01] LABS: HEMATOCRIT 25.2 % (37.0-47.0); HEMOGLOBIN 8.5 gm/dL (12.0-15.0); MCH 30.4 pg (26.0-34.0); MCHC 33.8 % (28.0-37.0); MCV 90.1 fL (80.0-100.0); RBC 2.8 mil/uL (4.20-5.00); RDW 14.7 % (10.5-14.5); WBC 9.9 thou/uL (4.0-11.0)
[2016-09-20 06:15] LABS: INR 1.2; PROTIME 12.1 Seconds (9.3-11.4)
[2016-09-20 06:31] LABS: ALBUMIN 2.5 g/dL (3.4-5.0); CALCIUM 9.1 mg/dL (8.5-10.1); CREATININE 1.6 mg/dL (0.6-1.3); MAGNESIUM 1.8 mg/dL (1.8-2.4); POTASSIUM 4.2 mmol/L (3.5-5.1); TOTAL BILIRUBIN 0.4 mg/dL (<0.1-1.0); TOTAL PROTEIN 5.9 g/dL (6.4-8.2)
[2016-09-20 08:00] VITALS: BP 133/52
[2016-09-20] MEDS ORDERED: DUONEB 2.5-0.5 M3 ML INH (10:34)
[2016-09-20] MEDS ORDERED: CYCLOBENZAPRINE5 MG PO (10:34)
[2016-09-20] MEDS ORDERED: CARVEDILOL12.5 MG PO (10:35)
[2016-09-20] MEDS ORDERED: ENOXAPARIN40 MG/0.1 SUBQ (10:35)
[2016-09-20] MEDS ORDERED: HUMALOG100 UNIT/1 SUBQ (10:36)
[2016-09-20] MEDS ORDERED: MIRALAX17 GM PO (10:36)
[2016-09-20] MEDS ORDERED: LANTUS100 UNIT/M SUBQ (10:36)
[2016-09-20] MEDS ORDERED: CARAFATE 11 GM/10 M1 PO (10:36)
[2016-09-20] MEDS ORDERED: LASIX 40 MG TAB40 MG PO (10:36)
[2016-09-20] MEDS ORDERED: GLYBURIDE 5 MG T5 M1 PO (10:37)
[2016-09-20 12:00] VITALS: BP 115/40
[2016-09-20 16:00] VITALS: BP 119/52
[2016-09-20 19:39] VITALS: BP 131/52
[2016-09-20 19:54] VITALS: BP 119/70
[2016-09-21 03:45] VITALS: BP 132/45
[2016-09-21 06:08] LABS: ABSOLUTE NEUTROPHILS 4.5 thou/uL (1.4-8.2); BASOPHILS 0.8 % (0.0-2.0); EOSINOPHILS 4.4 % (0.0-3.0); HEMATOCRIT 25.1 % (37.0-47.0); HEMOGLOBIN 8.3 gm/dL (12.0-15.0); LYMPHOCYTES 27.6 % (24.0-44.0); MCH 30.5 pg (26.0-34.0); MCHC 33.1 % (28.0-37.0); MCV 91.9 fL (80.0-100.0); MONOCYTES 10.7 % (1.0-8.0); PLATELET COUNT 318 thou/uL (150-400); POLYS 56.5 % (36.0-66.0); RBC 2.73 mil/uL (4.20-5.00); RDW 14.9 % (10.5-14.5)
[2016-09-21 06:12] LABS: MANUAL DIFF NO
[2016-09-21 06:23] LABS: ALBUMIN 2.4 g/dL (3.4-5.0); CREATININE 1.5 mg/dL (0.6-1.3); PHOSPHORUS 4.5 mg/dL (2.5-4.9); POTASSIUM 3.9 mmol/L (3.5-5.1)
[2016-09-21 16:00] VITALS: BP 128/64
[2016-09-21 20:17] VITALS: BP 132/59
[2016-09-21 23:22] VITALS: BP 127/69
[2016-09-22 04:26] LABS: ABSOLUTE NEUTROPHILS 7.6 thou/uL (1.4-8.2); BASOPHILS 0.3 % (0.0-2.0); EOSINOPHILS 0.5 % (0.0-3.0); HEMATOCRIT 25.6 % (37.0-47.0); HEMOGLOBIN 8.4 gm/dL (12.0-15.0); LYMPHOCYTES 13.4 % (24.0-44.0); MCH 30.1 pg (26.0-34.0); MCHC 32.6 % (28.0-37.0); MCV 92.3 fL (80.0-100.0); MONOCYTES 9.1 % (1.0-8.0); PLATELET COUNT 330 thou/uL (150-400); POLYS 76.7 % (36.0-66.0); RBC 2.77 mil/uL (4.20-5.00)
[2016-09-22 04:33] LABS: MANUAL DIFF NO
[2016-09-22 04:50] LABS: ALBUMIN 2.7 g/dL (3.4-5.0); CALCIUM 9.1 mg/dL (8.5-10.1); CREATININE 1.6 mg/dL (0.6-1.3); PHOSPHORUS 4.1 mg/dL (2.5-4.9); POTASSIUM 4.1 mmol/L (3.5-5.1)
[2016-09-22 05:02] VITALS: BP 113/78
[2016-09-22 05:28] LABS: TROPONIN-I 31.2 ng/mL (<0.04-0.07)
[2016-09-22 08:00] VITALS: BP 120/60
[2016-09-22 12:04] LABS: HEMATOCRIT 24.3 % (37.0-47.0); MCH 30.3 pg (26.0-34.0); MCHC 32.8 % (28.0-37.0); MCV 92.2 fL (80.0-100.0); RBC 2.63 mil/uL (4.20-5.00); RDW 16.2 % (10.5-14.5); WBC 9.2 thou/uL (4.0-11.0)
[2016-09-22 12:11] LABS: INR 1.2; PROTIME 12.5 Seconds (9.3-11.4)
[2016-09-22 12:17] LABS: ANION GAP 9 mmol/L (7-16); BUN 25 mg/dL (7-18); CALCIUM 8.4 mg/dL (8.5-10.1); CHLORIDE 104 mmol/L (98-107); CHOLESTEROL 131 mg/dL (<200); CO2 25 mmol/L (21-32); CREATININE 1.8 mg/dL (0.6-1.3); GLUCOSE 237 mg/dL (70-99); HDL CHOLESTEROL 43 mg/dL (>40); LDL CHOLESTEROL 67 mg/dL (<100); POTASSIUM 4.8 mmol/L (3.5-5.1); SODIUM 138 mmol/L (136-145); TRIGLYCERIDE 107 mg/dL (<150); VLDL 21 mg/dL (<40)
[2016-09-22 13:03] LABS: ABG SAMPLE TYPE ARTERIAL; BE(vivo) -4.2 mmol/L (-2 to +3); HCO3 19.9 mmol/L (22.0-26.0); LACTATE 4.23 mmol/L (0.5-2.0); O2(CT) 13.4 mL/dL (15.0-23.0); O2Hb 96.8 % (92.0-98.0); PCO2 32.5 mmHg (35.0-45.0); PO2 105.2 mmHg (80.0-100.0); pH 7.404 (7.360-7.450); sO2 97.9 % (92.0-98.0); tCO2 20.9 mmol/L (24.0-30.0)
[2016-09-22 13:37] LABS: ABG SAMPLE TYPE ARTERIAL; BE(vivo) -6.7 mmol/L (-2 to +3); O2(CT) 12.1 mL/dL (15.0-23.0); O2Hb 98.8 % (92.0-98.0); PCO2 27.5 mmHg (35.0-45.0); PO2 221.2 mmHg (80.0-100.0); pH 7.409 (7.360-7.450); sO2 99.5 % (92.0-98.0); tCO2 17.8 mmol/L (24.0-30.0)
[2016-09-22 13:38] LABS: LACTATE 6.94 mmol/L (0.5-2.0); STICK SITE L.FEMORAL
[2016-09-22 14:08] LABS: ABG SAMPLE TYPE ARTERIAL; BE(vivo) -14.4 mmol/L (-2 to +3); HCO3 12.1 mmol/L (22.0-26.0); O2(CT) 12.6 mL/dL (15.0-23.0); O2Hb 95.3 % (92.0-98.0); PCO2 30.5 mmHg (35.0-45.0); PO2 98.2 mmHg (80.0-100.0); sO2 96.3 % (92.0-98.0)
[2016-09-22 14:09] LABS: LACTATE 11.48 mmol/L (0.5-2.0); TIDAL VOLUME 500 ml; VDS CMV MODE cc; pH 7.216 (7.360-7.450)
== END 2016-09-22 15:24 | DRG 250 ==
LOC: 4S 10:34 → ICU 09-22 11:03
PROVIDERS: Hospitalist; Internal Medicine Cardiovascular Disease; Internal Medicine Nephrology
PROC: 5A09457 Assistance with Respiratory Ventilation, 24-96 Consecutive Hours, Continuous Positive Airway Pressure (ICD-10-PCS; 2016-09-17)
PROC: 05HA33Z Insertion of Infusion Device into Left Brachial Vein, Percutaneous Approach (ICD-10-PCS; 2016-09-18)
PROC: B54NZZA Ultrasonography of Left Upper Extremity Veins, Guidance (ICD-10-PCS; 2016-09-18)
PROC: 4A023N7 Measurement of Cardiac Sampling and Pressure, Left Heart, Percutaneous Approach (ICD-10-PCS; principal; 2016-09-22)
PROC: B2111ZZ Fluoroscopy of Multiple Coronary Arteries using Low Osmolar Contrast (ICD-10-PCS; 2016-09-22)
PROC: 02703ZZ Dilation of Coronary Artery, One Artery, Percutaneous Approach (ICD-10-PCS; 2016-09-22)
PROC: 5A12012 Performance of Cardiac Output, Single, Manual (ICD-10-PCS; 2016-09-22)
DX: I21.3 ST elevation (STEMI) myocardial infarction of unspecified site (principal); J18.9 Pneumonia, unspecified organism; J96.02 Acute respiratory failure with hypercapnia; I50.23 Acute on chronic systolic (congestive) heart failure; R65.11 Systemic inflammatory response syndrome (SIRS) of non-infectious origin with acute organ dysfunction; N17.9 Acute kidney failure, unspecified; D68.9 Coagulation defect, unspecified; E87.4 Mixed disorder of acid-base balance; I13.0 Hypertensive heart and chronic kidney disease with heart failure and stage 1 through stage 4 chronic kidney disease, or unspecified chronic kidney disease; I25.10 Atherosclerotic heart disease of native coronary artery without angina pectoris; I24.9 Acute ischemic heart disease, unspecified; E66.9 Obesity, unspecified; E11.21 Type 2 diabetes mellitus with diabetic nephropathy; E87.5 Hyperkalemia; D72.829 Elevated white blood cell count, unspecified; E11.65 Type 2 diabetes mellitus with hyperglycemia; K21.9 Gastro-esophageal reflux disease without esophagitis; Z96.651 Presence of right artificial knee joint; J44.9 Chronic obstructive pulmonary disease, unspecified; F41.9 Anxiety disorder, unspecified; G47.00 Insomnia, unspecified; R57.0 Cardiogenic shock; E78.5 Hyperlipidemia, unspecified; D64.9 Anemia, unspecified; I25.5 Ischemic cardiomyopathy; N18.9 Chronic kidney disease, unspecified; E11.22 Type 2 diabetes mellitus with diabetic chronic kidney disease; Z87.891 Personal history of nicotine dependence; Z68.34 Body mass index [BMI] 34.0-34.9, adult; Z95.0 Presence of cardiac pacemaker; Z79.899 Other long term (current) drug therapy; Z79.01 Long term (current) use of anticoagulants; Z86.718 Personal history of other venous thrombosis and embolism
CPT/HCPCS: 10100; 27000